=== PATIENT | female | born 1960 | race Caucasian/White ===

== ENCOUNTER 2019-05-27 05:00 | Observation (INO) ==
[2019-05-27 06:45] LABS: Basophils % 0.1 %; Hematocrit 36.9 % (35.3-44.9); Hemoglobin 11.4 g/dL (11.5-15.4); Immature Granulocytes % 0.4 % (0-4); Lymphocytes # 1.1 K/mcL (0.6-4.6); Lymphocytes % 11.5 %; Mean Corpuscular HGB Conc 30.9 g/dL (31.6-35.5); Mean Corpuscular Hemoglobin 27.7 pg (28.0-33.3); Mean Corpuscular Volume 89.8 fL (83.0-100.0); Monocytes # 0.2 K/mcL (0.0-1.3); Monocytes % 2.4 %; Neutrophils # 8.4 K/mcL (1.6-8.9); Platelet Count 264 K/mcL (140-400); Red Blood Count 4.11 M/mcL (3.82-4.97); Segmented Neutrophils % 85.6 %; White Blood Count 9.8 K/mcL (4.3-11.1)
[2019-05-27 06:47] LABS: Bilirubin,Urine Negative (Negative); Blood,Urine Negative (Negative); Clarity,Urine Clear (Clear); Color,Urine Yellow (Yellow); Glucose,Urine (UA) Normal (Normal); Ketones,Urine Negative (Negative); Leukocyte Esterase,Urine Small (Negative); Nitrite,Urine Negative (Negative); Protein,Urine Negative (Neg-Trace); Specific Gravity,Urine 1.027 (1.010-1.025); Urobilinogen,Urine Normal (Normal)
[2019-05-27 07:07] LABS: RBC,Urine 0-3 per hpf (0-3); Squamous Epithelial Cell,Urine Few per lpf (None-Few)
[2019-05-27 07:08] LABS: Bacteria,Urine Few per hpf (None-Few)
[2019-05-27 07:49] LABS: Albumin 3.7 g/dL (3.5-5.7); Albumin/Globulin Ratio 1.4 (1.1-2.2); Bilirubin,Direct 0.1 mg/dL (0.0-0.2); Bilirubin,Indirect 0.3 mg/dL (0.0-1.0); Bilirubin,Total 0.4 mg/dL (0.3-1.0); Calcium 9.8 mg/dL (8.6-10.3); Globulin 2.7 g/dL (2.4-3.5); Potassium 4.2 mEq/L (3.5-5.1); Total Protein 6.4 g/dL (6.4-8.9)
[2019-05-27] MEDS ORDERED: ceFAZolin 2,000 MG in 0.9 % Sodium Chloride 100 ML IVPB ONE (09:20)
[2019-05-27] MEDS ORDERED: Piperacillin/Tazobactam 3.375 GM in 0.9 % Sodium Chloride Mini Bag 100 ML IVPB ONE (09:25)
[2019-05-27] MEDS ORDERED: Ondansetron 4 MG/2 ML VIAL IVP ONE (09:26)
[2019-05-27] MEDS ORDERED: Ondansetron 4 MG/2 ML VIAL IVP PRN (09:45)
[2019-05-27] MEDS ORDERED: Naloxone 0.4 MG/ML INJ IVP PRN (09:45)
[2019-05-27] MEDS ORDERED: Dextrose Gel 15 GM/37.5 ML TUBE PO PRN ×2 (09:47)
[2019-05-27] MEDS ORDERED: D5% in Water 1,000 ML IVC PRN (09:47)
[2019-05-27] MEDS ORDERED: *HR* Dextrose 50 % in Water (Syg) 50 ML SYRINGE IVP PRN (09:47)
[2019-05-27] MEDS: 0.9 % Sodium Chloride 1,000 ML IVC SCH (10:53)
[2019-05-27] MEDS: Insulin LISPRO 300 UNITS/3 ML VIAL SQ SCH ×2 (11:00→16:44)
[2019-05-27] MEDS ORDERED: Fluticasone Propionate Nasal 50 MCG/SPRAY BOTTLE NS PRN (11:20)
[2019-05-27] MEDS ORDERED: Morphine Sulfate 2 MG/ML SYRINGE IVP ONE (12:27)
[2019-05-27] MEDS: *HR* Heparin 5,000 UNIT/ML VIAL SQ SCH (18:00)
[2019-05-27] MEDS: Piperacillin/Tazobactam 3.375 GM in 0.9 % Sodium Chloride Mini Bag 100 ML IVPB SCH (18:01)
[2019-05-27] MEDS ORDERED: predniSONE 20 MG TABLET PO SCH (19:00)
[2019-05-27] MEDS ORDERED: predniSONE 20 MG TABLET PO ONE (19:00)
[2019-05-27] MEDS ORDERED: Insulin DETEMIR 100 UNIT/ML X5UNITS SQ SCH (21:00)
[2019-05-28] MEDS: *HR* HYDROcodone/Acet 5/325 mg TABLET PO PRN ×3 (01:31→21:45)
[2019-05-28] MEDS: Piperacillin/Tazobactam 3.375 GM in 0.9 % Sodium Chloride Mini Bag 100 ML IVPB SCH ×3 (01:32→18:15)
[2019-05-28 05:23] LABS: Hematocrit 36.7 % (35.3-44.9); Hemoglobin 11.2 g/dL (11.5-15.4); Immature Granulocytes % 0.5 % (0-4); Lymphocytes # 1.2 K/mcL (0.6-4.6); Lymphocytes % 15.2 %; Mean Corpuscular HGB Conc 30.5 g/dL (31.6-35.5); Mean Corpuscular Hemoglobin 28.1 pg (28.0-33.3); Mean Platelet Volume 10.8 fL (9.4-12.4); Monocytes # 0.2 K/mcL (0.0-1.3); Neutrophils # 6.2 K/mcL (1.6-8.9); Platelet Count 317 K/mcL (140-400); Red Blood Count 3.99 M/mcL (3.82-4.97); Red Cell Distribution Width 15.9 % (11.5-14.5); Segmented Neutrophils % 81.3 %; White Blood Count 7.6 K/mcL (4.3-11.1)
[2019-05-28] MEDS: *HR* Heparin 5,000 UNIT/ML VIAL SQ SCH (05:59)
[2019-05-28] MEDS: 0.9 % Sodium Chloride 1,000 ML IVC SCH (06:03)
[2019-05-28 06:16] LABS: Calcium 8.7 mg/dL (8.6-10.3); Potassium 4.2 mEq/L (3.5-5.1)
[2019-05-28] MEDS ORDERED: allopurinoL 100 MG TABLET PO SCH (09:00)
[2019-05-28] MEDS ORDERED: Folic Acid 1 MG TABLET PO SCH (09:00)
[2019-05-28] MEDS: Insulin LISPRO 300 UNITS/3 ML VIAL SQ SCH ×2 (09:38→12:53)
[2019-05-28] MEDS ORDERED: Lidocaine -MPF 4% 5 ML AMPUL ONE (15:48)
[2019-05-28] MEDS ORDERED: *HR* FentaNYL (PF) 100 MCG/2 ML VIAL ONE ×2 (15:48→18:00)
[2019-05-28] MEDS ORDERED: Lidocaine -MPF 2% 2 ML VIAL ONE (15:48)
[2019-05-28] MEDS ORDERED: *HR* Rocuronium Bromide 50 MG/5 ML VIAL ONE (15:48)
[2019-05-28] MEDS ORDERED: Bupivacaine/EPI 1:200k 0.5%PF 30 ML VIAL ONE ×2 (15:49→16:22)
[2019-05-28] MEDS ORDERED: Dexamethasone 4 MG/ML VIAL ONE (15:52)
[2019-05-28] MEDS ORDERED: *HR* Midazolam HCl 2 MG/2 ML VIAL ONE (15:52)
[2019-05-28] MEDS ORDERED: Ondansetron 4 MG/2 ML VIAL ONE (15:52)
[2019-05-28] MEDS ORDERED: *HR* OxyCODONE Immed Rel 5 MG TABLET PO PRN (16:01)
[2019-05-28] MEDS ORDERED: *HR* HYDROMORPHONE 2 MG/ML VIAL ONE (18:37)
[2019-05-28] MEDS: *HR* HYDROmorphone PF 0.5 MG/0.5 ML SYRINGE IVP PRN ×2 (18:55→19:02)
[2019-05-28] MEDS ORDERED: Dextrose Gel 15 GM/37.5 ML TUBE PO PRN ×2 (19:54)
[2019-05-28] MEDS ORDERED: 0.9 % Sodium Chloride 1,000 ML IVC SCH (19:54)
[2019-05-28] MEDS ORDERED: Ondansetron 4 MG/2 ML VIAL IVP PRN (19:54)
[2019-05-28] MEDS ORDERED: Naloxone 0.4 MG/ML INJ IVP PRN (19:54)
[2019-05-28] MEDS ORDERED: *HR* Dextrose 50 % in Water (Syg) 50 ML SYRINGE IVP PRN (19:54)
[2019-05-28] MEDS ORDERED: Fluticasone Propionate Nasal 50 MCG/SPRAY BOTTLE NS PRN (19:54)
[2019-05-28] MEDS ORDERED: D5% in Water 1,000 ML IVC PRN (19:54)
[2019-05-28] MEDS ORDERED: Insulin DETEMIR 100 UNIT/ML X5UNITS SQ SCH (21:00)
[2019-05-29] MEDS: Piperacillin/Tazobactam 3.375 GM in 0.9 % Sodium Chloride Mini Bag 100 ML IVPB SCH ×2 (02:00→09:19)
[2019-05-29] MEDS: *HR* HYDROcodone/Acet 5/325 mg TABLET PO PRN ×2 (02:00→09:29)
[2019-05-29] MEDS ORDERED: *HR* Heparin 5,000 UNIT/ML VIAL SQ SCH (06:00)
[2019-05-29] MEDS: Insulin LISPRO 300 UNITS/3 ML VIAL SQ SCH ×2 (08:49→12:05)
[2019-05-29] MEDS ORDERED: Folic Acid 1 MG TABLET PO SCH (09:00)
[2019-05-29] MEDS ORDERED: allopurinoL 100 MG TABLET PO SCH (09:00)
[2019-05-29 10:33] LABS: BUN/Creatinine Ratio 16 (6-26); Blood Urea Nitrogen 18 mg/dL (6-20); Calcium 8.4 mg/dL (8.6-10.3); Carbon Dioxide 25 mEq/L (23-29); Chloride 109 mEq/L (98-107); Glucose 118 mg/dL (70-105); Osmolality,Calculated 293 (280-300); Potassium 3.5 mEq/L (3.5-5.1); Sodium 140 mEq/L (136-145); eGFR For African Americans > 60 (> 60); eGFR For Non-African Americans 51 (> 60)
[2019-05-29 11:40] VITALS: BP 110/63
[2019-05-29 15:05] LABS: Basophils % 0.2 %; Eosinophils # 0.1 K/mcL (0.0-0.6); Eosinophils % 0.6 %; Hematocrit 37.1 % (35.3-44.9); Hemoglobin 11.8 g/dL (11.5-15.4); Immature Granulocytes % 0.9 % (0-4); Lymphocytes # 2.8 K/mcL (0.6-4.6); Lymphocytes % 24.1 %; Mean Corpuscular HGB Conc 31.8 g/dL (31.6-35.5); Mean Corpuscular Hemoglobin 28.2 pg (28.0-33.3); Mean Corpuscular Volume 88.8 fL (83.0-100.0); Mean Platelet Volume 11.8 fL (9.4-12.4); Monocytes % 8.2 %; Neutrophils # 7.8 K/mcL (1.6-8.9); Platelet Count 267 K/mcL (140-400); Red Blood Count 4.18 M/mcL (3.82-4.97); Red Cell Distribution Width 16.3 % (11.5-14.5); White Blood Count 11.8 K/mcL (4.3-11.1)
[2019-05-29 15:34] LABS: Platelet Clumps Few (Not Present)
== END 2019-05-29 15:22 | disposition home or self-care (01) ==
LOC: 3ANU 05:00 → EMEROOARM 05:00 → SUATTDRO 09:31 → 3ANU 10:59
PROVIDERS: ADMIT Internal Medicine; ATTEND Internal Medicine